=== PATIENT | female | born 1975 | race Caucasian/White ===

== ENCOUNTER → 2016-09-30 | Outpatient (CLI) | payer MEDICAID ==
[~2016-09-30] MED LIST: ARPZ10T PO; ATRV10T PO; BENZ-13 PO; CLON0.5T3 PO; DEXT30SU5 PO; DOCU100C37 PO; DULO30CA PO; FAMO10TA43 PO; FAMO20TA5 PO; FERR325C PO; GLYB5TAB6 PO; HYDR-1231 PO; HYDR25CA92 GT; IBUP-1780 PO; MELO-198 PO; MTF500T PO; OXYC-465 PO; PEG250PW PO; PRD20T PO; PREN-93 PO; PRM25T PO; RABE20TA PO; TRAZ150T42 PO
--- OUTSIDE RECORDS SUMMARY | 2016-09-30 12:23 | XMS REPORT | Continuity of Care Document ---
Author Author [facility] Organization [facility] Address Unknown Phone Unavailable Care Team Providers Care Human Factors Ergonomist Name Role Phone YARED JOHNSON MD PCP Insurance Providers Payer Name Policy Number Subscriber Name Relationship Sonya [facility] [id number] Julita Murry Self / Same As Patient Advance Directives Directive Response Recorded Date/Time Advance Directives No 02/06/15 4:12pm Health Care Power of Department Chairperson No 02/06/15 4:12pm Organ Donor No 02/06/15 4:12pm Resuscitation Status Full Code 02/06/15 4:12pm Problems Medical Problems Problem Onset Date Status Abdominal wall contusion Unknown Active Threatened miscarriage in early Unknown Active Contusion of knee Unknown Active Unknown Active Contusion of knee Unknown Active Abdominal wall contusion Unknown Active Medications Medication Dose Route Sig Days/Qty Instructions Order Date Discontinued Date Status Atorvastatin Calcium 10 Mg PO BEDTIME 07/31/12 11/15/14 Discontinued Rabeprazole Sodium 20 Mg PO DAILY 07/31/12 11/15/14 Discontinued Metformin HCl (Glucophage) 500 Mg PO DAILY Do not take until DR. tillman it after blood draw on 08/03/12 07/31/12 11/15/14 Discontinued Meloxicam (Mobic) 7.5 Mg PO DAILY 07/31/12 11/15/14 Discontinued Duloxetine HCl 90 Mg PO DAILY 07/31/12 11/15/14 Discontinued Polyethylene Glycol 8.5 Gm PO DAILY 07/31/12 11/15/14 Discontinued Trazodone Hcl 150 Mg PO BEDTIME 07/31/12 11/15/14 Discontinued Clonazepam (Klonopin) 0.5 Mg PO NEEDED 07/31/12 11/15/14 Discontinued Aripiprazole 5 Mg PO DAILY 07/31/12 11/15/14 Discontinued Famotidine (Pepcid) 1 Each PO TWICE A DAY 11/02/14 11/15/14 Discontinued Famotidine 10 Mg PO TWICE A DAY 11/15/14 Active Promethazine Hcl 25 Mg PO EVERY 6 HOURS For Vomiting 11/15/14 Active Vit/Fe Fumarate/Fa 1 Each PO DAILY 11/15/14 Active Hydrocodone Bit/Acetaminophen 1 Tab PO EVERY 4HRS PRN PAIN 10 Qty 11/1502/06/15 Discontinued Ferrous Sulfate 325 ( PO DAILY 02/06/15 Active Social History Social History Problem Response Recorded Date/Time Alcohol Use Denies Use 11/15/2014 3:00pm Recreational Drug Use No 11/15/2014 3:00pm Recent Foreign Travel No 02/06/2015 4:08pm Smoking Status Never a Smoker 02/06/2015 4:10pm Query Response Start Date Stop Date Smoking Status Never a Smoker Hospital Discharge Instructions No hospital discharge instructions. Plan of Care Discharge Date 02/06/15 5:00pm Disposition 30 STILL A PATIENT Instructions/Education Provided OB OUTPATIENT DISCHARGE Gestational Diabetes (GEN) Forms Provided [facility] Women Services/OP Prescriptions See Medications Section Additional Instructions/Education call with questions or concerns. follow up with as scheduled. increase water intake. continue to check BS, eat snacks when needed. call if decrease movement. Functional Status No functional status results. Allergies, Adverse Reactions, Alerts Allergen Type Severity Reaction Status Last Updated guaifenesin ([id number]) Allergy Unknown Active 07/31/12 Immunizations No immunization records. Vital Signs Acute Vital Signs Vital Response Date/Time Temperature (Fahrenheit) 98.5 degrees F (97.6 - 99.5) Temperature (Calculated Celsius) 36.13335 degrees C (36.4 - 37.5) Temperature Source Tympanic Pulse Rate (adult) 73 bpm (60 - 90) Respiratory Rate 20 bpm (12 - 24) O2 Sat by Pulse Oximetry 99 % (88 - 100) Blood Pressure 110/54 mm Hg Pain Pain Intensity 0 Height (Feet) 5 feet Height (Inches) 4.00 inches Height (Calculated Centimeters) 162.513578 cm Weight (Pounds) 200 pounds Weight (Calculated Grams) 81457.475 gm Weight (Calculated Kilograms) 90.290927 kilograms Calculated BMI 34.33 Results Laboratory Results Test Name Result Units Flags Reference Collection Date/Time Result Date/ Time Comments Glucometer 95 MG/DL 70-110 02/06/2015 4:07pm 02/06/2015 4:14pm Procedures No known history of procedures. Encounters Encounter Location Date/Time Discharged Inpatient [facility] 02/06/15 3:53pm Registered Clinic [facility] 01/23/15 8:37am
--- NOTE | 2016-09-30 16:50 | Diagnostic Imaging Report ---
CLINICAL INDICATION: Patient with abnormal uterine bleeding. EXAM: Transabdominal and transvaginal ultrasound of the pelvis. COMPARISON: None. FINDINGS: The endometrium is upper limits of normal for thickness measuring 1.6 cm, but does not appear to be significantly heterogeneous. Otherwise, the uterus has normal size, shape, and configuration. The uterus measures 9.8 cm x 5.2 cm x 5.6 cm. The left ovary was only seen on the transabdominal images. The left ovary measures 2.5 cm x 2.5 cm x 2.0 cm and shows no significant abnormality. The right ovary shows small follicular cysts, but otherwise unremarkable. The right ovary has normal spectral Doppler waveform. The right ovary measures 2.2 cm x 1.8 cm x 2.0 cm. There is an 8 mm cystic area in the region of the cervix, suspected to represent a nabothian cyst. There is no significant free fluid in the pelvis. IMPRESSION: 1: Upper limits of normal endometrial thickness at 1.6 cm which is nonspecific. 2: Otherwise, the remainder of the visualized portions of the pelvic ultrasound exam is unremarkable. Dictated by: Dictated on workstation # [id number]
--- NOTE | 2016-10-01 10:01 | Diagnostic Imaging Report ---
Bilateral screening mammogram. The current study was also evaluated with a Computer Aided Detection (CAD) system. INDICATION: Screening. No current complaints stated on the questionnaire. COMPARISON: No prior studies are available for comparison. FINDINGS: The breasts are composed of scattered fibroglandular densities slightly more dense in the outer aspect of each breast. There is an asymmetry in the central aspect of the left CC projection seen with lobulated 1-cm density and adjacent smaller asymmetry seen. There is also along the outer aspect of the right breast seen on the exaggerated CC projection a questionable asymmetry noted. No suspicious calcifications seen. IMPRESSION: Focal compression views and ultrasound evaluation for bilateral asymmetries recommended. ACR BI-RADS Category 0: Incomplete. (Needs additional imaging evaluation). Result letter will be mailed to the patient. Note: At least 10% of breast cancer is not imaged by mammography. Dictated by: Dictated on workstation # [id number]
== END ==
LOC: RAD 12:20
PROVIDERS: ATTEND Family Medicine
DX: Z12.31 Encounter for screening mammogram for malignant neoplasm of breast (principal); N64.89 Other specified disorders of breast; N93.8 Other specified abnormal uterine and vaginal bleeding
CPT/HCPCS: 76830; 76856; 77067

== ENCOUNTER → 2016-11-10 | Outpatient (CLI) | payer MEDICAID ==
--- NOTE | 2016-11-10 18:21 | Diagnostic Imaging Report ---
EXAMINATION: Bilateral breast ultrasound. The current study was also evaluated with a Computer Aided Detection (CAD) system. INDICATION: Bilateral breast asymmetries. FINDINGS: Unremarkable breast parenchyma with no focal lesion seen on either side. The four quadrants and retroareolar region of each breast were scanned. IMPRESSION: Negative study. The asymmetry in the right breast is likely related to summation artifact of parenchyma. The asymmetries in the central aspect of the left breast, seen on the CC projection, persisted on focal compression views and are indeterminate. These could also be summation artifact of parenchyma. These can be further evaluated with a breast MRI or if not obtained, then observed with a four month followup left breast mammogram. ACR BI-RADS Category 3: Probably benign findings. Result letter will be mailed to the patient. Note: At least 10% of breast cancer is not imaged by mammography. Dictated by: Dictated on workstation # [id number]
--- NOTE | 2016-11-10 18:24 | Diagnostic Imaging Report ---
EXAMINATION: Left breast digital diagnostic mammogram with CAD. The current study was also evaluated with a Computer Aided Detection (CAD) system. INDICATION: Bilateral asymmetries seen in the central aspect of the left CC projection and lateral aspect of the exaggerated lateral view on the right side. FINDINGS: Compression views demonstrate two 1 cm asymmetries that persists on the focal compression views with no definitive correlate on the lateral projection. The compression view on the right side in the lateral aspect demonstrates no underlying abnormality with suggestion of summation artifact of parenchyma. IMPRESSION: Persistent asymmetries, measuring 1 cm, in the central aspect of the left CC projection. The right lateral asymmetry is probably summation artifact of parenchyma. Ultrasound evaluation pending. ACR BI-RADS Category 0: Incomplete. (Needs additional imaging evaluation). Result letter will be mailed to the patient. Note: At least 10% of breast cancer is not imaged by mammography. Dictated by: Dictated on workstation # [id number]
== END ==
LOC: RAD 13:12
PROVIDERS: ATTEND Family Medicine
DX: R92.8 Other abnormal and inconclusive findings on diagnostic imaging of breast (principal)
CPT/HCPCS: 77066

== ENCOUNTER 2017-02-17 12:16 | Outpatient (CLI) | payer MEDICAID ==
[~2017-02-17] VITALS: Ht 160 cm; Wt 97.7 kg
[2017-02-17 12:29] VITALS: BP 128/78
[2017-02-17] MEDS ORDERED: CETI10TA20 PO (12:35)
[2017-02-17] MEDS ORDERED: TOPI50TA13 PO (12:35)
[2017-02-17] MEDS ORDERED: GLYB2.5T4 PO (12:35)
[2017-02-17] MEDS ORDERED: OMEP20TA7 PO (12:35)
[2017-02-17 13:04] LABS: BASOPHILS % (AUTO) 0 % (0-10); EOSINOPHILS # (AUTO) 0.2 10^3/uL (0.0-0.3); EOSINOPHILS % (AUTO) 2 % (0-10); LYMPHOCYTES # (AUTO) 1.8 X 10^3 (1.0-4.0); LYMPHOCYTES % (AUTO) 17 % (12-44); MEAN CORPUSCULAR HEMOGLOBIN 26 PG (25-34); MEAN CORPUSCULAR HGB CONC 31 G/DL (32-36); MEAN CORPUSCULAR VOLUME 83 FL (80-99); MEAN PLATELET VOLUME 11.6 FL (7.4-10.4); MONOCYTES # (AUTO) 0.5 X 10^3 (0.0-1.0); MONOCYTES % (AUTO) 4 % (0-12); NEUTROPHILS # (AUTO) 8.1 X 10^3 (1.8-7.8); NEUTROPHILS % (AUTO) 77 % (42-75); PLATELET COUNT 298 10^3/uL (130-400); RED BLOOD COUNT 4.62 10^6/uL (4.35-5.85); RED CELL DISTRIBUTION WIDTH 13.8 % (10.0-14.5); WHITE BLOOD COUNT 10.6 10^3/uL (4.3-11.0)
== END 2017-02-17 12:48 | disposition home or self-care (01) ==
LOC: PREOP 12:16
PROVIDERS: ATTEND Obstetrics & Gynecology
DX: Z01.812 Encounter for preprocedural laboratory examination (principal); Z11.2 Encounter for screening for other bacterial diseases; N84.0 Polyp of corpus uteri; N93.9 Abnormal uterine and vaginal bleeding, unspecified; Z68.38 Body mass index [BMI] 38.0-38.9, adult
CPT/HCPCS: 36415; 85025; 86850; 86900; 86901; 87081

== ENCOUNTER 2017-02-24 07:50 | Day surgery (SDC) | payer MEDICAID ==
[~2017-02-24] VITALS: Ht 160 cm; Wt 97.7 kg
[~2017-02-24 07:50] MED LIST changes: +CETI10TA20 PO; +GLYB2.5T4 PO; +OMEP20TA7 PO; +TOPI50TA13 PO
[2017-02-24 08:43] VITALS: BP 131/75
--- OUTSIDE RECORDS SUMMARY | 2017-02-24 08:51 | XMS REPORT | Continuity of Care Document ---
Author Author [facility] Address Unknown Phone Unavailable Allergies Active Description Code Type Severity Reaction Onset Reported/Identified Relationship to Patient Clinical Status Yes Robitussin Drug Allergy 06/29/2011 Yes guaifenesin [id number] Drug Allergy Unknown N/A 07/31/2012 Yes cephalexin [id number] Drug Allergy Unknown HIVES 02/17/2017 Medications Problems Date Dx Coded Attending Type Code Diagnosis Diagnosed By 06/29/2011 WINNIE PRITCHETT DO 110.5 Dermatophytosis Of The Body 06/29/2011 WINNIE PRITCHETT DO 522.5 Periapical Abscess Without Sinus 06/29/2011 WINNIE PRITCHETT DO 784.0 Headache 06/29/2011 SEVERIANO MANCERA PA-C 110.5 Dermatophytosis Of The Body 06/29/2011 SEVERIANO MANCERA PA-C 522.5 Periapical Abscess Without Sinus 06/29/2011 SEVERIANO MANCERA PA-C 784.0 Headache 12/09/2011 WINNIE PRITCHETT DO 272.4 OTHER AND UNSPECIFIED HYPERLIPIDEMIA 12/09/2011 WINNIE PRITCHETT DO 300.00 ANXIETY STATE UNSPECIFIED 12/09/2011 WINNIE PRITCHETT DO 530.81 ESOPHAGEAL REFLUX 12/09/2011 WINNIE PRITCHETT DO 783.1 Abnormal Weight Gain 12/09/2011 WINNIE PRITCHETT DO 796.2 Elevated Blood Pressure Reading Without Diagnosis Of Hypertension 12/09/2011 WINNIE PRITCHETT DO V58.69 LONG-TERM (CURRENT) USE OF OTHER MEDICATIONS 12/09/2011 WINNIE PRITCHETT DO V65.49 OTHER SPECIFIED COUNSELING 12/09/2011 SEVERIANO MANCERA PA-C 272.4 OTHER AND UNSPECIFIED HYPERLIPIDEMIA 12/09/2011 SEVERIANO MANCERA PA-C 300.00 ANXIETY STATE UNSPECIFIED 12/09/2011 SEVERIANO MANCERA PA-C 530.81 ESOPHAGEAL REFLUX 12/09/2011 SEVERIANO MANCERA PA-C 783.1 Abnormal Weight Gain 12/09/2011 SEVERIANO MANCERA PA-C 796.2 Elevated Blood Pressure Reading Without Diagnosis Of Hypertension 12/09/2011 SEVERIANO MANCERA PA-C V58.69 LONG-TERM (CURRENT) USE OF OTHER MEDICATIONS 12/09/2011 SEVERIANO MANCERA PA-C V65.49 OTHER SPECIFIED COUNSELING 01/17/2012 WINNIE PRITCHETT DO 112.1 Candidiasis Vaginal 01/17/2012 WINNIE PRITCHETT DO 616.10 Vaginitis And Vulvovaginitis Unspecified 01/17/2012 WINNIE PRITCHETT DO V72.31 Nut Sheller Exam, Routine 01/17/2012 SEVERIANO MANCERA PA-C 112.1 Candidiasis Vaginal 01/17/2012 SEVERIANO MANCERA PA-C 616.10 Vaginitis And Vulvovaginitis Unspecified 01/17/2012 SEVERIANO MANCERA PA-C V72.31 Nut Sheller Exam, Routine 05/02/2012 WINNIE PRITCHETT DO 628.9 INFERTILITY FEMALE OF UNSPECIFIED ORIGIN 05/02/2012 SEVERIANO MANCERA PA-C 628.9 INFERTILITY FEMALE OF UNSPECIFIED ORIGIN 06/02/2012 WINNIE PRITCHETT DO 466.0 Bronchitis, Acute 06/02/2012 WINNIE PRITCHETT DO 531.90 GASTRIC ULCER UNSPECIFIED ACUTE OR CHRONIC WITHOUT HEMORRHAGE OR PERFORATION WITHOUT OBSTRUCTION 06/02/2012 WINNIE PRITCHETT DO 564.00 CONSTIPATION 06/02/2012 WINNIE PRITCHETT DO 724.2 Lumbago 06/02/2012 WINNIE PRITCHETT DO 786.50 CHEST PAIN 06/02/2012 SEVERIANO MANCERA PA-C 466.0 Bronchitis, Acute 06/02/2012 SEVERIANO MANCERA PA-C 531.90 GASTRIC ULCER UNSPECIFIED ACUTE OR CHRONIC WITHOUT HEMORRHAGE OR PERFORATION WITHOUT OBSTRUCTION 06/02/2012 SEVERIANO MANCERA PA-C 564.00 CONSTIPATION 06/02/2012 SEVERIANO MANCERA PA-C 724.2 Lumbago 06/02/2012 SEVERIANO MANCERA PA-C 786.50 CHEST PAIN 06/30/2012 WINNIE PRITCHETT DO 790.95 ELEVATED C-REACTIVE PROTEIN (CRP) 06/30/2012 SEVERIANO MANCERA PA-C 790.95 ELEVATED C-REACTIVE PROTEIN (CRP) 07/26/2012 WINNIE PRITCHETT DO 250.00 DIABETES II CONTROLLED (UNCOMPLICATED) 07/31/2012 Ot 250.00 07/31/2012 Ot 300.00 07/31/2012 Ot 424.0 07/31/2012 Ot 786.59 07/31/2012 Ot V15.82 07/31/2012 Ot V58.69 10/03/2014 Ot 649.53 11/02/2014 Ot 649.53 11/02/2014 Ot 649.53 11/02/2014 JASEN DO, LEONARD K Ot 640.03 11/02/2014 JASEN DO, LEONARD K Ot 648.93 11/02/2014 JASEN POOLE, LEONARD K Ot 922.2 11/02/2014 JASEN DO, LEONARD K Ot E000.8 11/02/2014 JASEN POOLE, LEONARD K Ot E880.9 11/02/2014 Ot 649.53 11/02/2014 Ot 649.53 11/15/2014 MICHAELA MCFADDEN Ot 625.9 11/15/2014 MICHAELA MCFADDEN Ot 648.93 11/15/2014 MICHAELA MCFADDEN Ot 924.11 11/15/2014 MICHAELA MCFADDEN Ot E849.6 11/15/2014 MICHAELA MCFADDEN Ot E885.9 12/04/2014 YARED JOHNSON MD Ot V28.81 12/04/2014 YARED JOHNSON MD Ot V28.81 12/18/2014 YARED JOHNSON MD Ot V28.81 01/14/2015 YARED JOHNSON MD Ot V28.81 01/23/2015 YARED JOHNSON MD Ot V28.81 02/08/2015 YARED JOHNSON MD Ot V28.81 02/10/2015 YARED JOHNSON MD Ot 655.73 02/10/2015 YARED JOHNSON MD Ot 655.73 02/10/2015 YARED JOHNSON MD Ot 655.73 02/11/2015 YARED JOHNSON MD Ot 648.83 02/11/2015 YARED JOHNSON MD J Ot 655.73 02/19/2015 ELIZABETH ARANGO, YARED Baltazar Ot 648.83 02/24/2015 YARED JOHNSON MD Ot 648.83 03/24/2015 MARA MORTENSEN MD Ot 648.83 03/24/2015 FESTUS ARANGO, MARA Yo Ot 655.73 03/26/2015 YARED JOHNSON MD Ot 648.83 03/28/2015 YARED JOHNSON MD Ot V28.81 03/28/2015 YARED JOHNSON MD Ot V28.81 03/28/2015 YARED JOHNSON MD Ot 648.83 03/28/2015 YARED JOHNSON MD Ot 648.83 03/28/2015 FESTUS ARANGO, MARA Yo Ot 648.83 03/28/2015 FESTUS ARANGO, MARA Yo Ot V22.1 03/30/2015 WINNIE PRITCHETT DO Ot 655.73 04/03/2015 YARED JOHNSON MD Ot 648.81 04/03/2015 YARED JOHNSON MD Ot 656.51 04/03/2015 YARED JOHNSON MD Ot 659.61 04/03/2015 YARED JOHNSON MD Ot 659.71 04/03/2015 YARED JOHNSON MD Ot 663.31 04/03/2015 YARED JOHNSON MD Ot V27.0 04/03/2015 YARED JOHNSON MD Ot 648.83 04/11/2015 YARED JOHNSON MD Ot 648.83 04/11/2015 FESTUS ARANGO, MARA Yo Ot 648.83 05/14/2015 YARED JOHNSON MD Ot 648.83 05/23/2015 YARED JOHNSON MD Ot V28.81 05/23/2015 YARED JOHNSON MD Ot V28.81 05/23/2015 YARED JOHNSON MD Ot 648.83 05/23/2015 FESTUS ARANGO, MARA Yo Ot 648.83 08/03/2015 NURYS ARANGO, SEVERIANO Tiwari Ot J06.9 ACUTE UPPER RESPIRATORY INFECTION, UNSPE 08/03/2015 YARED JOHNSON MD Ot V28.81 08/03/2015 YARED JOHNSON MD, Ot V28.81 08/03/2015 YARED JOHNSON MD Ot 648.83 08/03/2015 MARA MORTENSEN MD Ot 648.83 11/07/2015 YARED JOHNSON MD Ot R51 11/20/2015 YARED JOHNSON MD, Ot R51 08/05/2016 YARED JOHNSON MD, Ot R51 HEADACHE 08/07/2016 KARLEY MCFADDENTCHEN L Ot E11.9 TYPE 2 DIABETES MELLITUS WITHOUT COMPLIC 08/07/2016 KARLEY MCFADDENTCHEN L Ot J06.9 ACUTE UPPER RESPIRATORY INFECTION, UNSPE 08/07/2016 GISELA TAPIA MICHAELA L Ot R05 COUGH 08/07/2016 ROSALIND MCFADDENEN L Ot R11.0 NAUSEA 08/10/2016 KARLEY MCFADDENTCHEN L Ot E11.9 TYPE 2 DIABETES MELLITUS WITHOUT COMPLIC 08/10/2016 KARLEY MCFADDENTCHEN L Ot J06.9 ACUTE UPPER RESPIRATORY INFECTION, UNSPE 08/10/2016 GISELA TAPIA MICHAELA L Ot R05 COUGH 08/10/2016 KARLEY MCFADDENTCHEN L Ot R11.0 NAUSEA 09/30/2016 YARED JOHNSON MD, Ot R51 HEADACHE 10/15/2016 AYRED JOHNSON MD Ot N64.89 OTHER SPECIFIED DISORDERS OF BREAST 10/15/2016 YARED JOHNSON MD Ot N93.8 OTHER SPECIFIED ABNORMAL UTERINE AND VAG 10/15/2016 YARED JOHNSON MD Ot Z12.31 ENCNTR SCREEN MAMMOGRAM FOR MALIGNANT NE 11/10/2016 YARED JOHNSON MD Ot R92.8 OTH ABN AND INCONCLUSIVE FINDINGS ON DX 11/11/2016 YARED JOHNSON MD Ot R92.8 OTH ABN AND INCONCLUSIVE FINDINGS ON DX 11/16/2016 YARED JOHNSON MD Ot R92.8 OTH ABN AND INCONCLUSIVE FINDINGS ON DX 11/22/2016 YARED JOHNSON MD Ot R92.8 OTH ABN AND INCONCLUSIVE FINDINGS ON DX 02/14/2017 YARED JOHNSON MD, Ot R51 HEADACHE 02/14/2017 YARED JOHNSON MD, Ot N64.89 OTHER SPECIFIED DISORDERS OF BREAST 02/14/2017 YARED JOHNSON MD, Ot N93.8 OTHER SPECIFIED ABNORMAL UTERINE AND VAG 02/14/2017 YARED JOHNSON MD, Ot Z12.31 ENCNTR SCREEN MAMMOGRAM FOR MALIGNANT NE 02/14/2017 YARED JOHNSON MD, Ot R92.8 OTH ABN AND INCONCLUSIVE FINDINGS ON DX 02/14/2017 YARED JOHNSON MD, Ot R51 HEADACHE 02/14/2017 YARED JOHNSON MD, Ot N64.89 OTHER SPECIFIED DISORDERS OF BREAST 02/14/2017 YARED JOHNSON MD, Ot N93.8 OTHER SPECIFIED ABNORMAL UTERINE AND VAG 02/14/2017 YARED JOHNSON MD, Ot Z12.31 ENCNTR SCREEN MAMMOGRAM FOR MALIGNANT NE 02/14/2017 YARED JOHNSON MD, Ot R92.8 OTH ABN AND INCONCLUSIVE FINDINGS ON DX 02/18/2017 DANNI SWIFT DO Ot N84.0 POLYP OF CORPUS UTERI 02/18/2017 DANNI SWIFT DO, Ot N93.9 ABNORMAL UTERINE AND VAGINAL BLEEDING, U 02/18/2017 DANNI SWIFT DO, Ot Z01.812 ENCOUNTER FOR PREPROCEDURAL LABORATORY E 02/18/2017 DANNI SWIFT DO, Ot Z11.2 ENCOUNTER FOR SCREENING FOR OTHER BACTER 02/18/2017 DANNI SWIFT DO, Ot Z68.38 BODY MASS INDEX (BMI) 38.0-38.9, ADULT Procedures Code Description Performed By Performed On Cardiolog Felipe Burks 06/30/2012 70257 ROUTINE VENIPUNCTURE 06/30/2012 [id number] CRP HS (CARDIO) 07/01/2012 75769 ECHO 2D 2011 Results Test Result Range Complete blood count (CBC) with automated white blood cell (WBC) differential - 02/17/17 12:45 Blood leukocytes automated count (number/volume) 10.6 10*3/ uL 4.3-11.0 Blood erythrocytes automated count (number/volume) 4.62 10*6 /uL 4.35-5.85 Venous blood hemoglobin measurement (mass/volume) 11.9 g/dL 11.5-16.0 Blood hematocrit (volume fraction) 38 % 35-52 Automated erythrocyte mean corpuscular volume 83 [foz_us] 80-99 Automated erythrocyte mean corpuscular hemoglobin (mass per erythrocyte) 26 pg 25-34 Automated erythrocyte mean corpuscular hemoglobin concentration measurement ( mass/volume) 31 g/dL 32-36 Automated erythrocyte distribution width ratio 13.8 % 10.0-14.5 Automated blood platelet count (count/volume) 298 10*3/uL 130-400 Automated blood platelet mean volume measurement 11.6 [foz_ us] 7.4-10.4 Automated blood neutrophils/100 leukocytes 77 % 42-75 Automated blood lymphocytes/100 leukocytes 17 % 12-44 Blood monocytes/100 leukocytes 4 % 0-12 Automated blood eosinophils/100 leukocytes 2 % 0-10 Automated blood basophils/100 leukocytes 0 % 0-10 Blood neutrophils automated count (number/volume) 8.1 10*3 1.8-7.8 Blood lymphocytes automated count (number/volume) 1.8 10*3 1.0-4.0 Blood monocytes automated count (number/volume) 0.5 10*3 0.0-1.0 Automated eosinophil count 0.2 10*3/uL 0.0-0.3 Automated blood basophil count (count/volume) 0.0 10*3/uL 0.0-0.1 Blood type T Indirect antibody screen panel - 02/17/17 12:45 ABO+Rh group AP NRG Blood group antibody screen NEGATIVE NRG Methicillin resistant Staphylococcus aureus (MRSA) screening culture - 12:45 Methicillin resistant Staphylococcus aureus (MRSA) screening culture NEG NRG Encounters ACCT No. Visit Date/Time Discharge Status Pt. Type Provider Facility Loc./Unit Complaint [id number] 07/26/2012 10:09:00 07/26/2012 23: 59:59 [place] [id number] 06/02/2012 14:16:00 06/02/2012 23: 59:59 CLS Outpatient SEVERIANO MANCERA PA-C
[2017-02-24] MEDS: LACTATED RINGERS 1,000 ML IV PRN ×2 (09:14→10:33)
[2017-02-24] MEDS ORDERED: LIDOCAINE 2% 20 ML (XYLOCAINE) VIAL ONE (09:39)
[2017-02-24] MEDS ORDERED: DEXAMETHASONE PF 10 MG/ML (DECADRON) VIAL ONE (09:39)
[2017-02-24] MEDS ORDERED: ONDANSETRON 4 MG/2 ML (SDV) Z0FRAN ONE (09:39)
[2017-02-24] MEDS ORDERED: fentaNYL INJECTION 100 MCG/2 ML AMP ONE (09:39)
[2017-02-24] MEDS ORDERED: proPOfol 200 MG/20 ML (DIPRIVAN) VIAL IV ONE (09:39)
[2017-02-24] MEDS ORDERED: LACTATED RINGERS 1,000 ML IV ONE ×2 (09:39→10:41)
[2017-02-24] MEDS ORDERED: MIDAZOLAM 2 MG/2 ML (VERSED) VIAL ONE (09:39)
[2017-02-24] MEDS ORDERED: SEVOFLURANE (ULTANE) 15 ML INHAL SOLN ONE ×3 (09:39→10:41)
[2017-02-24] MEDS ORDERED: BUPIVACAINE 0.25% 30 ML (SENSORCAINE) VIAL ONE (09:45)
--- NOTE | 2017-02-24 10:02 | Progress Note-Pre Operative ---
Pre-Operative Progress Note H&P Reviewed The H&P was reviewed, patient examined and no changes noted. Date Seen by Provider: Feb 24, 2017 Time Seen by Provider: 10:00 Date H&P Reviewed: Feb 24, 2017 Time H&P Reviewed: 09:55 Pre-Operative Diagnosis: AUB, Uterine polyp, BMI 38 DANNI SWIFT DO Feb 24, 2017 10:02 am
[2017-02-24] MEDS ORDERED: D5 LR IV SOLUTION 1,000 ML IV SCH (10:09)
[2017-02-24] MEDS ORDERED: APAP 300 MG/CODEINE 30 MG (TYLENOL #3) TAB PO PRN (10:15)
[2017-02-24] MEDS ORDERED: KETOROLAC 30 MG/ML VIAL IVP ONE (10:15)
[2017-02-24] MEDS ORDERED: ONDANSETRON 4 MG/2 ML (SDV) Z0FRAN IVP PRN ×2 (10:15→11:00)
[2017-02-24] MEDS ORDERED: IBUP-1773 PO (10:17)
[2017-02-24] MEDS ORDERED: ACET1TAB43 PO (10:17)
--- NOTE | 2017-02-24 10:17 | Discharge Inst-Women's Service ---
Discharge Inst-Women's Serv Consults/Follow Up Additional Follow Up: Yes Orders/Referrals Dr. Swift in 3 weeks Activity Activity: Activity as Tolerated Driving Instructions: You May Drive NO SMOKING: NO SMOKING Nothing Inside Vagina: No Douching, No [place], No Tampons Diet Discharge Diet: No Restrictions Symptoms to Report to : Bleeding Excessive, Pain Increased, Fever Over 101 Degrees F, Vaginal Bleeding Increase, Questions/Concerns Skin/Wound Care Bathing Instructions: Shower (x 1 week) DANNI SWIFT DO Feb 24, 2017 10:17 am
[2017-02-24] MEDS ORDERED: KETOROLAC 30 MG/ML VIAL ONE (10:53)
[2017-02-24] MEDS ORDERED: morphine INJ 10 MG/ML 1ML (SYR OR VIAL) ONE (10:54)
[2017-02-24] MEDS ORDERED: morphine INJ 10 MG/ML 1ML (SYR OR VIAL) IVP PRN (11:00)
[2017-02-24 11:50] VITALS: BP 134/90
[2017-02-24] MEDS ORDERED: IBUPROFEN 600 MG (MOTRIN) TAB PO SCH (12:00)
[2017-02-24 12:20] VITALS: BP 136/87
[2017-02-24 12:47] VITALS: BP 131/81
--- NOTE | 2017-02-27 23:44 | OPERATIVE REPORT ---
PROCEDURE PHYSICIAN: DANNI SWIFT DATE OF PROCEDURE: 02/24/2017 PREOPERATIVE DIAGNOSES: 1. Abnormal uterine bleeding. 2. BMI of 38.2. POSTOPERATIVE DIAGNOSIS: 1. Abnormal uterine bleeding. 2. BMI of 38.2. PROCEDURE: D\T\C with video hysteroscopy. SURGEON: Dr. Danni Swift. ANESTHESIA: General endotracheal. ESTIMATED BLOOD LOSS: Minimal. URINE OUTPUT: 50 clear at the end of the procedure. FLUIDS: 1100 mL of lactated ringer solution. FLUIDS DEFICIT AT THE END OF PROCEDURE: 180 mL of normal saline. SPECIMEN SENT: Endometrial curettings. FINDINGS: Normal endometrial cavity with normal appearing endometrial tissue; however, an enlarged uterus and a large cavity in length. Unable to perform NovaSure endometrial ablation due to cavity size. INDICATIONS FOR THE PROCEDURE: This 41-year-old female patient is consulted to me from the [facility] due to heavy abnormal periods. The patient underwent endometrial biopsy in the office which was found to be negative and was opting to proceed with hysterectomy; however, I discussed with the patient less aggressive options in the form of hysteroscopy with possible NovaSure ablation. However, I did discussed with the patient prior to this, there is a chance of all failure with these procedures as well as a chance that the uterine cavity would not allow me to perform the ablation. Given that this was a much more rapid recovery time frame for the patient, she was agreeable to proceed and try this first as a more conservative measure. Risk of the procedure were discussed with the patient in detail including risk of bleeding, infection, perforation, risk from the NovaSure ablation, risk from anesthesia, risk for postoperative thromboembolic events, need for blood transfusion, and even . After everything was discussed with the patient in detail, consent was obtained and the preoperative area and the patient was taken the operating room. OPERATIVE REPORT IN DETAIL: Once in the operating room, general anesthesia was found to be adequate. She was placed in the dorsal lithotomy position, prepped and draped in normal sterile fashion. She was first examined under anesthesia. The uterus is difficult to palpate due to patient's body habitus. I then placed a weighted speculum in the patient's vagina. A right angle retractor is used to visualize the cervix. It was grasped at the 12 position using a long Allis clamp. I then perform a paracervical block using 0.25% Marcaine at 3 and 9 o'clock positions. Care was taken to aspirate before injecting. I inject 5 mL at each injection site. I then gently sound the uterine cavity depth which was found to be nearly 13 cm. I then gently dilate the cervix using Hegar dilators large enough to allow placement of the hysteroscope. I then use the hysteroscope and using the Beetailer fluid management system, I use normal saline as my visual medium, and direct the hysteroscope into the intrauterine cavity which appears normal. Bilateral tubal ostia are appreciated. There was no intrauterine cavitary masses; however, the size of the uterine cavity is too large to ablate. At which point I remove the hysteroscope and perform a blind curette of the endometrial cavity gently and send this tissue as endometrial curettings. After which, there is no active bleeding noted from the patient's cervix. All other the instruments were removed from the patient's vagina. The patient tolerated the procedure well and was taken to the recovery area in stable condition after straight catheterization was performed. Lap and sponge counts were correct at the end of the procedure. Instrument counts correct as well. Job ID: [id number] Dictated Date: 02/24/2017 11:04:54 Retail Shift Leader Date: 02/27/2017 23:29:13 / rambo
== END 2017-02-24 12:47 | disposition home or self-care (01) ==
LOC: SDC 07:50
PROVIDERS: ATTEND Obstetrics & Gynecology
DX: N84.0 Polyp of corpus uteri (principal); N93.9 Abnormal uterine and vaginal bleeding, unspecified; E11.9 Type 2 diabetes mellitus without complications; E66.9 Obesity, unspecified; Z68.38 Body mass index [BMI] 38.0-38.9, adult; F17.210 Nicotine dependence, cigarettes, uncomplicated; Z79.899 Other long term (current) drug therapy
CPT/HCPCS: 82962; 84703; 88305

== ENCOUNTER → 2017-02-28 | Outpatient (CLI) | payer MEDICAID ==
[~2017-02-28] MED LIST changes: +ACET1TAB43 PO; +IBUP-1773 PO
--- NOTE | 2017-02-28 14:07 | Diagnostic Imaging Report ---
Left breast ultrasound Indication : nodule in the upper aspect of the left breast. Comparison 11/10/16. Findings: There is no underlying lesion in the central upper aspect of the right breast and is scanned with no definite abnormality. Impression: Negative study. The mammographic abnormality however persistent with circumscribed margins in favor of benign tissue such as intramammary lymph nodes. Again MRI would be helpful. If the not feasible, then a followup mammogram when the patient is due for her bilateral study in September 2017 is recommended. BI-RADS 3. Dictated by: Dictated on workstation # [id number]
--- NOTE | 2017-02-28 19:40 | Diagnostic Imaging Report ---
EXAMINATION: Diagnostic left breast mammogram. The current study was also evaluated with a Computer Aided Detection (CAD) system. COMPARISON: 11/10/2016. INDICATION: Followup asymmetry in the central aspect of the left CC projection. FINDINGS: There is an unchanged lobulated focal asymmetry seen along the central slightly superior aspect of the left breast, better seen on the CC projection. Tomographic views demonstrate a correlating lesion along the 12 o'clock zone, and there is suggestion of central lucency in favor of an intramammary lymph node. No suspicious mass or calcification is seen. IMPRESSION: Stable persistent focal asymmetry at 12 o'clock zone, possibly an intramammary lymph node. Ultrasound correlation is pending. ACR BI-RADS Category 0: Incomplete. (Needs additional imaging evaluation). Result letter will be mailed to the patient. Note: At least 10% of breast cancer is not imaged by mammography. Dictated by: Dictated on workstation # [id number]
== END ==
LOC: RAD 13:02
PROVIDERS: ATTEND Family Medicine
DX: N63 Unspecified lump in breast (principal)
CPT/HCPCS: 76642

== ENCOUNTER → 2019-04-24 | Outpatient (CLI) | payer MEDICAID ==
[~2019-04-24] MED LIST changes: -BENZ-13 PO; +BENZ100C18 PO
--- NOTE | 2019-04-24 18:56 | Diagnostic Imaging Report ---
INDICATION: Routine screening. COMPARISON: Comparison is made with prior mammograms from 02/28/2017 and 09/30/2016. TECHNIQUE: 2-D and 3-D bilateral screening mammography was performed. The current study was also evaluated with a Computer Aided Detection (CAD) system. 3-D tomosynthesis was also performed and reviewed. FINDINGS: Both breasts remain heterogeneously dense, limiting the sensitivity of mammography. Circumscribed nodular density in the upper central left breast appears stable and most consistent with intraparenchymal lymph node. No new mass or malignant-appearing microcalcifications are seen. Axillae are unremarkable. IMPRESSION: No mammographic features suspicious for malignancy are identified. ACR BI-RADS Category 2: Benign findings. Result letter will be mailed to the patient. Note: At least 10% of breast cancer is not imaged by mammography. Dictated by: Dictated on workstation # [id number]
== END ==
LOC: RAD 07:52
PROVIDERS: ATTEND Family Medicine
DX: Z12.31 Encounter for screening mammogram for malignant neoplasm of breast (principal)
CPT/HCPCS: 77067

== ENCOUNTER → 2019-05-30 | Outpatient (CLI) | payer MEDICAID ==
[~2019-05-30] VITALS: Ht 160 cm; Wt 90.8 kg
[~2019-05-30] MED LIST changes: +CATHETER FLUSH 10 ML SYR IV PRN; +REGADENOSON 0.4 MG/5 ML SYR (LEXISCAN) IV ONE
--- NOTE | 2019-05-30 17:54 | STRESS TEST ---
DATE OF SERVICE: 05/30/2019 LEXISCAN MYOVIEW STRESS TEST REPORT REFERRING PHYSICIAN: Avery Lock MD Baseline heart rate is 70. Baseline blood pressure 131/89. Baseline EKG is sinus rhythm with no ischemic changes. In summary, the patient was injected with 9.8 mCi of technetium-99 Myoview and the resting images were obtained. Then, the patient received 0.4 mg of Lexiscan followed by 28.4 mCi of technetium-99 Myoview. Throughout the test, there were no EKG changes. The resting and stress images were reviewed and compared in the short axis, horizontal long axis, and vertical long axis views. Review of the images showed breast attenuation with typical female pattern. No significant ischemia or infarction were noted on SPECT images. SSS is 2, SDS 2, TID value 0.94. On the gated images, the left ventricle appeared to be normal size with normal contractility. Calculated ejection fraction 53%. IN CONCLUSION: 1. The patient tolerated Lexiscan well. 2. Breast attenuation with typical female pattern with no significant ischemia or infarction on SPECT images. 3. Normal left ventricular size with normal contractility. Calculated ejection fraction 53%. Job ID: [id number] DocumentID: [id number] Dictated Date: 05/30/2019 17:39:49 Crude Oil Driver Date: 05/30/2019 17:53:20 Dictated By: WALI PLAZA MD
== END ==
LOC: CARD 08:47
PROVIDERS: ATTEND Internal Medicine Cardiovascular Disease
DX: E11.9 Type 2 diabetes mellitus without complications (principal); I34.0 Nonrheumatic mitral (valve) insufficiency; Z72.0 Tobacco use; Z78.9 Other specified health status
CPT/HCPCS: 78452; 93017; 93306

== ENCOUNTER → 2019-08-31 | Outpatient (CLI) | payer MEDICAID ==
[~2019-08-31] MED LIST changes: -CATHETER FLUSH 10 ML SYR IV PRN; -REGADENOSON 0.4 MG/5 ML SYR (LEXISCAN) IV ONE
--- NOTE | 2019-08-31 16:49 | Diagnostic Imaging Report ---
EXAMINATION: Lumbar spine radiographs, 3 views. COMPARISON: None. HISTORY: 44-year-old female, low back pain. Fall. FINDINGS: There are bilateral L5 pars interarticularis defects. There is grade 1 anterolisthesis of L5 on S1, measuring 4 mm. There is moderate disc height loss at L5-S1. Additional involvement of the lumbar spine is unremarkable. Facet joints are unremarkable. The sacroiliac joints are unremarkable. IMPRESSION: 1. Bilateral L5 pars interarticularis defects with grade 1 anterolisthesis of L5 on S1, measuring 4 mm. 2. Moderate disc height loss at L5-S1. Dictated by: Dictated on workstation # [id number]
== END ==
LOC: RAD 16:11
PROVIDERS: ATTEND Family Medicine
DX: M54.16 Radiculopathy, lumbar region (principal); R29.890 Loss of height
CPT/HCPCS: 72100

== ENCOUNTER → 2019-09-13 | Outpatient (CLI) | payer MEDICAID ==
--- NOTE | 2019-09-13 09:31 | Diagnostic Imaging Report ---
PROCEDURE: MRI lumbar spine. TECHNIQUE: Multiplanar, multisequence MRI of the lumbar spine was performed without contrast. INDICATION: Low back pain, increasing in severity. No prior studies are available for comparison. FINDINGS: Curvature of the lumbar spine is normal. There is grade 1 spondylolisthesis of L5 on S1. There appeared to be pars defects at the L5-S1 level. Vertebral body heights are maintained. The marrow signal intensity is unremarkable. No geographic marrow lesion or acute compression fracture is seen. There is significant degenerative disc disease at the L5-S1 level, with disc space narrowing and desiccation. The conus is unremarkable at the T12-L1 level. T12-L1: Central canal and neural foramina are widely patent. L1-T2: Central canal and neural foramina are widely patent. L2-L3: Central canal and neural foramina are widely patent. L3-L4: Central canal and neural foramina are widely patent. L4-L5: Central canal and right neural foramen is widely patent. There is very mild left neural foraminal narrowing due to broad based left posterolateral disc bulging. L5-S1: Broad-based disc bulging is noted. This produces significant narrowing of the lateral recesses bilaterally. There is also severe bilateral neural foraminal stenosis. No significant central canal stenosis is seen. Paraspinous tissues are unremarkable. IMPRESSION: Lower lumbar degenerative disc disease. This is most significant at L5-S1 where there is grade 1 spondylolisthesis and bilateral spondylolysis. Significant bilateral lateral recess stenosis and bilateral neural foraminal stenosis is noted. There is also mild left neural foraminal narrowing at L4-L5. Dictated by: Dictated on workstation # [id number]
== END ==
LOC: RAD 07:17
PROVIDERS: ATTEND Family Medicine
DX: M51.37 Other intervertebral disc degeneration, lumbosacral region (principal); M47.817 Spondylosis without myelopathy or radiculopathy, lumbosacral region; M43.17 Spondylolisthesis, lumbosacral region; M48.07 Spinal stenosis, lumbosacral region; R29.890 Loss of height
CPT/HCPCS: 72148

== ENCOUNTER → 2020-03-07 | Outpatient (CLI) | payer MEDICAID ==
[~2020-03-07] MED LIST changes: -CETI10TA20 PO; +CETI10TA21 PO
--- NOTE | 2020-03-07 11:52 | Diagnostic Imaging Report ---
PROCEDURE: US Non-ob pelvis comp/trans. TECHNIQUE: Multiple realtime grayscale images were obtained of the pelvis in various projections endovaginally. Transabdominal imaging was also performed. INDICATION: Left pelvic pain. The uterus is anteverted measuring 9.4 x 5.5 x 5.6 cm. Endometrium is approximately 11 mm in thickness. There is uterine myometrial heterogeneity but no discrete myometrial mass is detected. Right ovary measures 2.5 x 1.7 x 1.8 cm and the left ovary measures 2.6 x 1.7 x 2.7 cm. Ovaries contain small follicles. No adnexal mass or free fluid is detected. IMPRESSION: Essentially unremarkable pelvic ultrasound. Dictated by: Dictated on workstation # [id number]
== END ==
LOC: RAD 09:30
PROVIDERS: ATTEND Family Medicine
DX: R10.2 Pelvic and perineal pain (principal); N92.0 Excessive and frequent menstruation with regular cycle
CPT/HCPCS: 76830; 76856

== ENCOUNTER 2020-04-09 10:11 | Outpatient (CLI) | payer MEDICAID ==
[~2020-04-09] VITALS: Ht 160 cm; Wt 106.3 kg
[~2020-04-09 10:11] MED LIST changes: +ALPR0.5T PO; +AMLO5TAB9 PO; +DIVA500T PO; +OXYB5TAB13 PO; +PANT40SU PO
[2020-04-14] MEDS ORDERED: HYDR-34 PO (09:38)
[2020-04-14] MEDS ORDERED: DCS100C PO (09:38)
[2020-04-14] MEDS ORDERED: IBUP-844 PO (09:38)
[2020-04-14] MEDS ORDERED: SIME80TA16 PO (09:38)
== END 2020-04-09 10:17 | disposition home or self-care (01) ==
LOC: PREOP 10:11
PROVIDERS: ATTEND Obstetrics & Gynecology
DX: Z01.818 Encounter for other preprocedural examination (principal)

== ENCOUNTER 2020-06-04 05:33 | Outpatient (RCR) | payer MEDICAID ==
[~2020-06-04] VITALS: Ht 165.1 cm; Wt 108.4 kg
[~2020-06-04 05:33] MED LIST changes: -CETI10TA21 PO; +CETI10TA49 PO; +DCS100C PO; +HYDR-34 PO; +IBUP-844 PO; -OXYC-465 PO; +OXYC-556 PO; +SIME80TA16 PO
[2020-06-06] MEDS ORDERED: PANT40TA2 PO (12:35)
== END 2020-06-04 10:40 | disposition home or self-care (01) ==
LOC: PREOP 05:33
PROVIDERS: ATTEND Surgery
DX: Z01.812 Encounter for preprocedural laboratory examination (principal); Z20.828 Contact with and (suspected) exposure to other viral communicable diseases
CPT/HCPCS: 87635

== ENCOUNTER 2020-06-06 12:02 | Day surgery (SDC) | payer MEDICAID ==
[2020-06-06] VITALS (10 sets, daily range): BP systolic 116–154; BP diastolic 57–80
[~2020-06-06] VITALS: Ht 165.1 cm; Wt 108.4 kg
[~2020-06-06 12:02] MED LIST changes: +AMLO-250 PO; -AMLO5TAB9 PO
[2020-06-06] MEDS ORDERED: NS IV 500 ML 500 ML ONE (12:08)
[2020-06-06] MEDS ORDERED: NS IV 500 ML 500 ML IV PRN (12:10)
[2020-06-06] MEDS ORDERED: HURRICAINE EXT TUBE (BENZOCAINE) XX PRN (12:15)
[2020-06-06] MEDS ORDERED: fentaNYL INJECTION 100 MCG/2 ML AMP IVP ONE (12:15)
[2020-06-06] MEDS ORDERED: MIDAZOLAM 5 MG/5 ML (VERSED) VIAL IV ONE (12:15)
[2020-06-06] MEDS ORDERED: LIDOCAINE JELLY 2% 6 ML SYRINGE MM PRN (12:15)
--- NOTE | 2020-06-06 12:33 | Progress Note-Pre Operative ---
Pre-Operative Progress Note H&P Reviewed The H&P was reviewed, patient examined and no changes noted. Date Seen by Provider: Jun 06, 2020 Time Seen by Provider: 12:00 Date H&P Reviewed: Jun 06, 2020 Time H&P Reviewed: 12:00 Pre-Operative Diagnosis: JAKI THAO MD Jun 06, 2020 12:33
--- NOTE | 2020-06-06 12:33 | Conscious Sedation/ASA ---
Conscious Sedation Pre-Proced Time 12:00 ASA Score 2 For ASA 3 and 4: Consider anesthesia and medical clearance. Also, for patients with a history of failed moderate sedation consider anesthesia. Airway Lungs Heart ASA score ASA 1: a normal healthy patient ASA 2: a patient with a mild systemic disease (mid diabetes, controlled hypertension, obesity ASA 3: a patient with a severe systemic disease that limits activity (angina, COPD, prior Myocardial infarction) ASA 4: a patient with an incapacitating disease that is a constant threat to life (CHF, renal failure) ASA 5: a moribund patient not expected to survive 24 hrs. (ruptured aneurysm) ASA 6: a declared brain- patient whose organs are being harvested. For emergent operations, add the letter E after the classification Mallampati Classification Grade 2 Sedation Plan Analgesia, Amnesia, Plan communicated to team members, Discussed options with patient/fam, Discussed risks with patient/fam The patient is an appropriate candidate to undergo the planned procedure, sedation, and anesthesia. The patient immediately re-assessed prior to indication. JAKI WHITLOCK MD Jun 06, 2020 12:33
[2020-06-06] MEDS ORDERED: PANT40TA2 PO (12:35)
--- NOTE | 2020-06-06 12:35 | Discharge Inst-Surgical ---
D/C Lap Instructions-CHINYERE New, Converted, or Re-Newed RX: RX on Chart Follow Up Appt in 2 weeks Activity as tolerated High Fiber Diet 25g or more per day Avoid Alcohol, Caffeine, Spicy [place] and Acid foods. Drink 64 fluid oz or more of fluids per day. Symptoms to Report: Fever over 101 degree F, Nausea/Vomiting If any problems/questions: Contact your physician or go to Emergency Room JAKI WHITLOCK MD Jun 06, 2020 12:35
[2020-06-06] MEDS ORDERED: ONDANSETRON 4 MG/2 ML (SDV) Z0FRAN IVP PRN (12:45)
[2020-06-06] MEDS ORDERED: HYDROcodone/APAP 5 MG/325 MG (LORTAB) TAB PO PRN (12:45)
[2020-06-06] MEDS ORDERED: morphine INJ 10 MG/ML 1ML (SYR OR VIAL) IVP PRN ×2 (12:45)
[2020-06-06] MEDS ORDERED: ACETAMINOPHEN 325 MG TABLET PO PRN (12:45)
[2020-06-06] MEDS ORDERED: HURRICAINE EXT TUBE (BENZOCAINE) ONE (13:19)
[2020-06-06] MEDS ORDERED: fentaNYL INJECTION 100 MCG/2 ML AMP ONE ×2 (13:19→13:21)
[2020-06-06] MEDS ORDERED: MIDAZOLAM 5 MG/5 ML (VERSED) VIAL ONE ×2 (13:19→13:21)
[2020-06-06] MEDS ORDERED: LIDOCAINE JELLY 2% 6 ML SYRINGE ONE (13:20)
--- NOTE | 2020-06-06 14:21 | Progress Note-Post Operative ---
Post-Operative Progess Note Surgeon (s)/Bus Analyst (s) Surgeon JAKI WHITLOCK MD Bus Analyst: none Pre-Operative Diagnosis GERD Post-Operative Diagnosis reflux esophagitis(stage 2), small-moderate HH(2.5cm), moderate gastritis. Procedure & Operative Findings Date of Procedure 06/06/20 Procedure Performed/Findings EGD with bx. Anesthesia Type cs Estimated Blood Loss Estimated blood loss (mL): minimal Specimens/Packing Specimens Removed ge jxn, antrum JAKI WHITLOCK MD Jun 06, 2020 14:21
--- NOTE | 2020-06-06 21:48 | OPERATIVE REPORT ---
DATE OF SERVICE: 06/06/2020 ATTENDING PRIMARY CARE PHYSICIAN: Dr. Avery Lock. PREOPERATIVE DIAGNOSIS: Gastroesophageal reflux disease. POSTOPERATIVE DIAGNOSES: Reflux esophagitis, stage II. Small to moderate size hiatal hernia, approximately 2.5 cm in size, moderate gastritis. PROCEDURE: EGD with biopsy. SURGEON: Jaki Whitlock MD ANESTHESIA: General endotracheal. ESTIMATED BLOOD LOSS: Minimal. FINDINGS: Reflux esophagitis, stage II. Small to moderate size hiatal hernia, approximately 2.5 cm in size, moderate gastritis. DISPOSITION: The patient tolerated the procedure well. INDICATION: The patient is a 44-year-old female who has had issues with epigastric burning sensation as well as crampy pain. She states that she has been treated with medication; however, has been noncompliant in the past. She also reports that she has taken them for a short period of time and her symptoms had reoccur and she would discontinue the medication. She does have risk factors including caffeinated beverages as well as cigarette smoking. DESCRIPTION OF PROCEDURE: The patient was brought to the endoscopy suite, laid in the left lateral decubitus position. After adequate IV pain and sedated medications and conscious sedation anesthesia, the mouthpiece was applied. The endoscope was placed in the mouth, visualizing the pharynx and hypopharyngeal region. Vocal cords, epiglottis and vallecula identified and appeared to be normal. The endoscope was then gently intubated at esophageal opening and esophagus insufflated. The endoscope was then advanced through the first, second and third portion of esophagus at the level of the GE junction, reflux esophagitis stage II identified. There were no ulcers or strictures identified in this region. A biopsy was taken with forceps with visualization of good hemostasis. The endoscope was then advanced into the stomach and endoscope retroflexed, visualizing a small to moderate size hiatal hernia, approximately 2.5 cm in size. There was a moderate severity gastritis with some superficial erosions of the antrum as well. This was biopsied with forceps to rule out H. pylori with visualization of good hemostasis. The endoscope was then advanced to the pylorus and the first and second portion of the duodenum, which appeared normal with no distal obstructions or ulcerations. The endoscope was then slowly withdrawn while taking a second look and suctioning of residual air with no additional findings. The patient tolerated the procedure well. She will need to follow the necessary lifestyle and diet accommodation, which would include smoking cessation as well as avoidance of caffeinated beverages, spicy, greasy and acidic foods. She also needs to avoid taking small and more frequent meals, avoid eating at night as well as head elevation while lying supine. Any modality of regularly scheduled diet and exercise and weight loss and maintenance would also be beneficial. We also do recommend a PPI acid lpta and she states that she was given a prescription; however, has not started yet and we will recommend that she does take that on a regular everyday basis. Job ID: [id number] DocumentID: [id number] Dictated Date: 06/06/2020 14:18:22 Tool Die Maker Date: 06/06/2020 21:46:53 Dictated By: JAKI WHITLOCK MD
== END 2020-06-06 15:22 | disposition home or self-care (01) ==
LOC: ENDO 12:02
PROVIDERS: ATTEND Surgery
DX: K21.00 Gastro-esophageal reflux disease with esophagitis, without bleeding (principal); K29.50 Unspecified chronic gastritis without bleeding; K44.9 Diaphragmatic hernia without obstruction or gangrene; I10 Essential (primary) hypertension; F17.210 Nicotine dependence, cigarettes, uncomplicated; Z79.899 Other long term (current) drug therapy; Z88.1 Allergy status to other antibiotic agents; Z88.8 Allergy status to other drugs, medicaments and biological substances; Z90.710 Acquired absence of both cervix and uterus; Z83.3 Family history of diabetes mellitus
CPT/HCPCS: 88305

== ENCOUNTER → 2020-06-12 | Outpatient (CLI) | payer MEDICAID ==
[~2020-06-12] MED LIST changes: +PANT40TA2 PO
--- NOTE | 2020-06-12 12:39 | Diagnostic Imaging Report ---
Digital mammogram. Bilateral screening This study was compared to prior exams of 04/24/2019, 02/28/2017 and 09/30/2016. At the time of this screening examination the patient did relate to that she has had right nipple discharge approximately 1 week ago. Fibroglandular tissue both breasts is heterogeneously dense. This does limit the sensitivity of this exam. On the MLO view of the right breast there is a suggestion of architectural distortion in the retroareolar region approximately 4 cm from the nipple. This finding is difficult to appreciate on the craniocaudad view may be secondary to superimposition. Even so, I would recommend that a compression view of this area be obtained in the CC and MLO projections as well as a true lateral view for further evaluation. Ultrasound should also be performed. The left breast is unchanged. Impression: Additional mammographic views and ultrasound of the right breast will be recommended for further study. Ultrasound should also be performed. ACR BI-RADS Category 0: Incomplete. (Needs additional imaging evaluation). Result letter will be mailed to the patient. Note: At least 10% of breast cancer is not imaged by mammography. Dictated by: Dictated on workstation # [id number]
== END ==
LOC: RAD 08:00
PROVIDERS: ATTEND Obstetrics & Gynecology
DX: Z12.31 Encounter for screening mammogram for malignant neoplasm of breast (principal)
CPT/HCPCS: 77063; 77067

== ENCOUNTER → 2020-06-25 | Outpatient (CLI) | payer MEDICAID ==
--- NOTE | 2020-06-25 12:53 | Diagnostic Imaging Report ---
INDICATION: Architectural distortion right breast. Patient presents for additional views. Correlation is made with the recent screening mammogram from 06/12/2020. Unilateral right 2-D and 3-D diagnostic mammography was performed. This included spot compression CC and ML views as well as additional 90 degree lateral views. Additional views fail to demonstrate a discrete mass or area of architectural distortion. The area of questionable distortion on screening study most likely represented superimposed tissue. IMPRESSION: BI-RADS 0 Additional views fail to demonstrate a discrete mass or architectural distortion. Even so directed sonographic interrogation of the right breast approximately 4 cm from the nipple medial and lateral is recommended and will be performed today. ACR BI-RADS Category 0: Incomplete. (Needs additional imaging evaluation). Result letter will be mailed to the patient. Note: At least 10% of breast cancer is not imaged by mammography. Dictated by: Dictated on workstation # [id number]
--- NOTE | 2020-06-25 13:54 | Diagnostic Imaging Report ---
INDICATION: Right breast density, questionable architectural distortion. COMPARISON: Correlation is made with the diagnostic mammogram from earlier this same day and a screening mammogram from 06/12/2020. FINDINGS: Sonographic interrogation from the 8 to 10 o'clock location as well as the 2 to 4 o'clock location was performed. No sonographic abnormality is seen. No solid or cystic mass is detected. IMPRESSION: No sonographic abnormality is detected. The patient may return to routine annual screening mammography. ACR BI-RADS Category 1: Negative. Result letter will be mailed to the patient. Note: At least 10% of breast cancer is not imaged by mammography. Dictated by: Dictated on workstation # [id number]
== END ==
LOC: RAD 12:45
PROVIDERS: ATTEND Obstetrics & Gynecology
DX: R92.8 Other abnormal and inconclusive findings on diagnostic imaging of breast (principal)
CPT/HCPCS: 76642; 77065; G0279

== ENCOUNTER → 2021-07-03 | Outpatient (CLI) | payer MEDICAID ==
[~2021-07-03] MED LIST changes: -DCS100C PO; +DOCU-239 PO; +GLBR2.5T PO; +GLBR5T PO; -GLYB2.5T4 PO; -GLYB5TAB6 PO
--- NOTE | 2021-07-03 13:44 | Diagnostic Imaging Report ---
INDICATION: Routine screening. Comparison is made with prior mammogram 06/12/2020 and 04/24/2019. 2-D and 3-D bilateral screening mammography was performed with CAD. Both breasts are heterogeneously dense, limiting the sensitivity of mammography. A nodular density in the upper left breast is stable. No new mass or malignant-appearing microcalcifications are seen. Axillae are unremarkable. IMPRESSION: No mammographic features suspicious for malignancy are identified. BI-RADS Category 2 ACR BI-RADS Category 2: Benign findings. Result letter will be mailed to the patient. Note: At least 10% of breast cancer is not imaged by mammography. Dictated by: Dictated on workstation # [id number]
== END ==
LOC: RAD 08:22
PROVIDERS: ATTEND Obstetrics & Gynecology
DX: Z12.31 Encounter for screening mammogram for malignant neoplasm of breast (principal)
CPT/HCPCS: 77063; 77067

== ENCOUNTER → 2021-07-27 | Outpatient (CLI) | payer MEDICAID ==
[~2021-07-27] MED LIST changes: +CATHETER FLUSH 10 ML SYR IV PRN
--- NOTE | 2021-07-27 12:19 | Diagnostic Imaging Report ---
INDICATION: Right upper quadrant pain. TECHNIQUE: The patient was administered 5.4 mCi of technetium 99m Choletec intravenously and imaging over the abdomen was performed. After 60 minutes, the patient ingested Ensure and a gallbladder ejection fraction was calculated. FINDINGS: There is homogeneous uptake of activity by the liver with prompt excretion of activity into the gallbladder and common duct. There is normal passage of activity into the small bowel. There is also activity throughout the stomach, consistent with gastric bile reflux. The gallbladder ejection fraction is 92%. IMPRESSION: 1. Patent cystic duct and common bile duct. 2. The gallbladder ejection fraction of 92% could represent a hyperfunctioning gallbladder. 3. Findings consistent with gastric bile reflux. Dictated by: Dictated on workstation # [id number]
== END ==
LOC: CARD 10:00
PROVIDERS: ATTEND Surgery
DX: K21.9 Gastro-esophageal reflux disease without esophagitis (principal)
CPT/HCPCS: 78227; A9537

== ENCOUNTER 2021-08-04 05:50 | Outpatient (CLI) | payer MEDICAID ==
[~2021-08-04] VITALS: Ht 165.1 cm; Wt 95.7 kg
[~2021-08-04 05:50] MED LIST changes: -CATHETER FLUSH 10 ML SYR IV PRN
[2021-08-04] MEDS ORDERED: HYDR25TA4 PO (09:59)
[2021-08-04] MEDS ORDERED: PANT40TA52 PO (09:59)
[2021-08-04] MEDS ORDERED: SUCR1TAB PO (09:59)
[2021-08-04] MEDS ORDERED: OMEP20TA7 PO (09:59)
[2021-08-04] MEDS ORDERED: FAMO40TA72 PO (09:59)
[2021-08-04] MEDS ORDERED: OXYB5TAB13 PO (09:59)
[2021-08-04] MEDS ORDERED: ATOR10TA66 PO (09:59)
== END 2021-08-04 10:04 | disposition home or self-care (01) ==
LOC: PREOP 05:50
PROVIDERS: ATTEND Surgery
DX: Z01.818 Encounter for other preprocedural examination (principal)

== ENCOUNTER 2021-08-06 09:46 | Day surgery (SDC) | payer MEDICAID ==
[~2021-08-06] VITALS: Ht 165.1 cm; Wt 95.7 kg
[2021-08-06] VITALS (11 sets, daily range): BP systolic 106–134; BP diastolic 56–75
[~2021-08-06 09:46] MED LIST changes: +ATOR10TA66 PO; +FAMO40TA72 PO; +HYDR25TA4 PO; +PANT40TA52 PO; +SUCR1TAB PO
[2021-08-06] MEDS ORDERED: CLINDAMYCIN 900 MG/50 ML IVPB 50 ML IV ONE (10:00)
[2021-08-06] MEDS: LACTATED RINGERS 1,000 ML IV PRN ×2 (10:22→12:47)
--- NOTE | 2021-08-06 10:23 | Progress Note-Pre Operative ---
Pre-Operative Progress Note H&P Reviewed The H&P was reviewed, patient examined and no changes noted. Date Seen by Provider: Aug 06, 2021 Time Seen by Provider: 10:20 Date H&P Reviewed: Aug 06, 2021 Time H&P Reviewed: 10:15 Pre-Operative Diagnosis: Biliary Colic, Biliary Dyskinesia MENA MCNULTY APRN Aug 06, 2021 10:23
[2021-08-06] MEDS ORDERED: OXYC1TAB16 PO (10:24)
--- NOTE | 2021-08-06 10:25 | Discharge Inst-Surgical ---
D/C Lap Instructions-KIDO Reconcile Patient Problems Problems Reviewed?: Yes New, Converted, or Re-Newed RX: RX on Chart Follow Up Appt in 2 weeks Activity as tolerated No driving for 24 hours No driving while on pain medications Incentive Spirometry use every 2 hours while awake Regular Diet Symptoms to Report: Fever over 101 degree F, Nausea/Vomiting Infection Signs and Symptoms to report: Increased redness, Foul odor of wound, Increased drainage Bathing instructions: May shower Operative Area Clean/Dry; Keep incision clean/dry If any problems/questions: Contact your physician or go to Emergency Room MENA MCNULTY APRN Aug 06, 2021 10:25
[2021-08-06] MEDS ORDERED: oxyCODONE/APAP 5/325MG (PERCOCET 5) TABLET PO PRN (10:30)
[2021-08-06] MEDS ORDERED: ONDANSETRON 4 MG/2 ML (SDV) Z0FRAN IVP PRN (10:30)
[2021-08-06] MEDS ORDERED: ACETAMINOPHEN 325 MG TABLET PO PRN (10:30)
[2021-08-06] MEDS ORDERED: morphine INJ 10 MG/ML 1ML (SYR OR VIAL) IVP PRN (10:30)
[2021-08-06] MEDS ORDERED: LIDOCAINE/EPI 1%-1:200,000 (XYLOCAINE) 30 ML VIAL ONE (11:28)
[2021-08-06] MEDS ORDERED: fentaNYL INJ 100 MCG/2 ML AMP ONE (11:56)
[2021-08-06] MEDS ORDERED: MIDAZOLAM 2 MG/2 ML (VERSED) VIAL ONE (11:56)
[2021-08-06] MEDS ORDERED: NEOSTIGMINE 3 MG/3 ML VIAL ONE (12:43)
[2021-08-06] MEDS ORDERED: SEVOFLURANE (ULTANE) 15 ML INHAL SOLN ONE ×2 (12:43→12:48)
[2021-08-06] MEDS ORDERED: proPOfol 200 MG/20 ML (DIPRIVAN) VIAL IV ONE (12:43)
[2021-08-06] MEDS ORDERED: ROCURONIUM 10 MG/ML 5 ML SYRINGE IV ONE (12:43)
[2021-08-06] MEDS ORDERED: LIDOCAINE PF 2% 5 ML (XYLOCAINE) VIAL ONE (12:43)
[2021-08-06] MEDS ORDERED: GLYCOPYRROLATE 0.2 MG/ML (ROBINUL) 2 ML VIAL ONE (12:43)
[2021-08-06] MEDS ORDERED: ONDANSETRON 4 MG/2 ML (SDV) Z0FRAN ONE (12:43)
--- NOTE | 2021-08-06 13:44 | Anesthesia-General Post-Op ---
General Patient Condition Mental Status/LOC: Same as Preop Cardiovascular: Satisfactory Nausea/Vomiting: Absent Respiratory: Satisfactory Pain: Controlled Complications: Absent Post Op Complications Complications None Follow Up Care/Instructions Patient Instructions None needed. Anesthesia/Patient Condition Patient Condition Patient is doing well, no complaints, stable vital signs, no apparent adverse anesthesia problems. No complications reported per nursing. JW RUIZ CRNA Aug 06, 2021 13:44
--- NOTE | 2021-08-06 19:14 | OPERATIVE REPORT ---
DATE OF SERVICE: 08/06/2021 ATTENDING PRIMARY CARE PHYSICIAN: Avery Lock MD PREOPERATIVE DIAGNOSIS: Symptomatic biliary dyskinesia. POSTOPERATIVE DIAGNOSIS: Symptomatic biliary dyskinesia with early chronic calculous cholecystitis. PROCEDURE: Laparoscopic cholecystectomy. SURGEON: Jaki Whitlock MD. YOUTH MINISTRY DIRECTOR: Gilmer Fay APRN. ANESTHESIA: General endotracheal. ESTIMATED BLOOD LOSS: Minimal. FINDINGS: Distended gallbladder, small gallstone. DISPOSITION: The patient tolerated the procedure well. INDICATIONS: The patient is a 46-year-old female, known to us. She has had a history of gastroesophageal reflux disease and underwent an upper endoscopy in the past. She states that in May of this year, she has felt some pain in the right upper abdominal quadrant, which would occur after eating greasy or spicy foods. She underwent a gallbladder ultrasound, which was negative and then a HIDA scan was performed, which did show bile acid reflux as well as a hyperfunctioning gallbladder after the administration of Kinevac analogue consistent with a biliary dyskinesia. DESCRIPTION OF PROCEDURE: The patient was brought to the operating room, laid supine on the table. After adequate IV pain and sedative medications and general endotracheal intubation, the abdomen was prepped and draped in standard surgical fashion. A 0.5% Marcaine with epinephrine was then used to anesthetize overlying skin in the left upper abdominal quadrant and transverse skin incision made using a 15 blade. An #0 silk suture was applied to the medial aspect incision for retraction and a Veress needle inserted with a low opening pressure of 0 mmHg. The abdomen was then insufflated to 15 mmHg pressure. The Veress needle removed and a 5 mm XL trocar placed followed by a 5 mm 45-degree angle laparoscope visualizing the peritoneal cavity. A 4-quadrant abdominal exploration was performed. There was a slightly distended gallbladder, no gallbladder wall thickening. Under direct visualization, a supraumbilical 10 mm port was placed after the skin and peritoneal lining were anesthetized using 0.5% Marcaine with epinephrine and a transverse skin incision made using 15 blade. In a similar manner, a right upper abdominal quadrant 5 mm port was placed. The patient was then placed in reverse Trendelenburg position as well as plane right side up, left side down. The fundus of the gallbladder was then retracted anteriorly and superiorly. The hepatoduodenal ligament was then dissected open using blunt dissection as well as electrocautery on hook instrument as well as a [place] dissector. The entire critical view of safety was identified including the triangle of Calot as well as the cystic duct and artery as only two structures going to gallbladder as well as the cystic plate behind the proximal gallbladder. A timeout was then taken and the cystic duct and artery were then clipped proximally and distally and cut with EndoShears. The gallbladder was then dissected off the liver bed using electrocautery with visualization of good hemostasis as well as no leaking ducts of Luschka. The gallbladder was removed through the 10 mm port site using an EndoCatch bag. The 10 mm port site fascia and peritoneum were then closed under direct visualization using a Harmeet-Jaime device and #0 Vicryl suture. The abdomen was then desufflated and remaining ports removed. All skin incisions were closed using 4-0 Monocryl running subcuticular sutures. Wounds were then cleaned and covered with Dermabond. The patient tolerated the procedure well. We will start IV normal pain medication as well as a clear liquid diet. When she is tolerating clears, there is good pain control with oral pain medications, ambulating well, we will discharge her home where she will be instructed to do no heavy lifting or exertion for the next two weeks. Job ID: [id number] DocumentID: [id number] Dictated Date: 08/06/2021 12:51:33 Billboard Poster Date: 08/06/2021 19:13:35 Dictated By: JAKI WHITLOCK MD
== END 2021-08-06 15:10 ==
LOC: SDC 09:46
PROVIDERS: ATTEND Surgery
DX: K80.10 Calculus of gallbladder with chronic cholecystitis without obstruction (principal); K82.8 Other specified diseases of gallbladder; I10 Essential (primary) hypertension; K21.9 Gastro-esophageal reflux disease without esophagitis; E66.9 Obesity, unspecified; E78.00 Pure hypercholesterolemia, unspecified; F17.210 Nicotine dependence, cigarettes, uncomplicated; Z79.899 Other long term (current) drug therapy; Z83.3 Family history of diabetes mellitus; Z80.1 Family history of malignant neoplasm of trachea, bronchus and lung; Z80.3 Family history of malignant neoplasm of breast
CPT/HCPCS: 87081

== ENCOUNTER → 2022-07-05 | Outpatient (CLI) | payer MEDICAID ==
[~2022-07-05] MED LIST changes: +ACET-11 PO; -ACET1TAB43 PO; +OMEP20TA56 PO; -OMEP20TA7 PO; +OXYC1TAB16 PO
--- NOTE | 2022-07-05 11:12 | Diagnostic Imaging Report ---
INDICATION: Routine screening. Comparison is made with prior mammogram from 07/03/2021 and 06/12/2020. 2-D and 3-D bilateral screening mammography was performed with CAD. Both breasts are heterogeneously dense, limiting the sensitivity of mammography. The parenchymal pattern is stable. No dominant mass or malignant-appearing microcalcifications are seen. Axillae are unremarkable. IMPRESSION: No mammographic features suspicious for malignancy are identified. ACR BI-RADS Category 2: Benign findings. Result letter will be mailed to the patient. Note: At least 10% of breast cancer is not imaged by mammography. BI-RADS Category 2 Dictated by: Dictated on workstation # [id number]
== END ==
LOC: RAD 08:36
PROVIDERS: ATTEND Family Medicine
DX: Z12.31 Encounter for screening mammogram for malignant neoplasm of breast (principal)
CPT/HCPCS: 77063; 77067

== ENCOUNTER → 2022-10-15 | Outpatient (CLI) | payer MEDICAID ==
--- NOTE | 2022-10-15 13:59 | Diagnostic Imaging Report ---
Indication: Left breast lump. Comparison is made with prior mammograms 07/05/2022, 07/03/2021. Unilateral left 2-D and 3-D diagnostic mammography was performed with CAD. Left breast is heterogeneously dense, limiting the sensitivity of mammography. Circumscribed nodule in the upper left breast mid depth is stable. No discrete mass at the area of palpable abnormality in the upper and outer left breast is identified. No malignant-appearing microcalcifications are identified. Left axilla is unremarkable. IMPRESSION: BI-RADS 0 No mammographic features suspicious for malignancy are identified. Even so, directed sonographic interrogation of the area of palpable lump in the left breast is recommended and will be performed today. ACR BI-RADS Category 0: Incomplete. (Needs additional imaging evaluation). Result letter will be mailed to the patient. Note: At least 10% of breast cancer is not imaged by mammography. Dictated by: Dictated on workstation # [id number]
--- NOTE | 2022-10-15 16:49 | Diagnostic Imaging Report ---
Indication: Left breast lump. Correlation is made with diagnostic mammogram earlier same day. Sonographic interrogation of the area of lump in the upper outer left breast was performed. There is an ovoid, circumscribed hyperechoic nodule just below the skin surface at the 2:00 location of the left breast, 5-6 cm from the nipple. This measures 9 mm x 3 mm x 6 mm and corresponds to the patient's palpable abnormality. Imaging characteristics are most suggestive of a lipoma. No other masses are seen. IMPRESSION: BI-RADS Category 2 Findings most suggestive of a small lipoma. 2:00 location left breast, corresponding to the palpable abnormality. The patient may return to routine annual screening mammography. ACR BI-RADS Category 2: Benign findings. Result letter will be mailed to the patient. Note: At least 10% of breast cancer is not imaged by mammography. Dictated by: Dictated on workstation # [id number]
== END ==
LOC: RAD 13:28
PROVIDERS: ATTEND Family Medicine
DX: N63.21 Unspecified lump in the left breast, upper outer quadrant (principal)
CPT/HCPCS: 76642; 77065; G0279

== ENCOUNTER 2022-10-26 05:30 | Outpatient (CLI) | payer MEDICAID ==
[~2022-10-26] VITALS: Ht 160 cm; Wt 90.0 kg
[2022-10-26] MEDS ORDERED: NAPR-1070 PO (08:57)
== END 2022-10-26 11:48 | disposition home or self-care (01) ==
LOC: PREOP 05:30
PROVIDERS: ATTEND Surgery
DX: Z01.818 Encounter for other preprocedural examination (principal)

== ENCOUNTER 2022-10-28 12:27 | Day surgery (SDC) | payer MEDICAID ==
[~2022-10-28] VITALS: Ht 160 cm; Wt 90.0 kg
[2022-10-28] VITALS (7 sets, daily range): BP systolic 102–121; BP diastolic 63–82
[~2022-10-28 12:27] MED LIST changes: +NAPR-1070 PO
[2022-10-28] MEDS ORDERED: LIDOCAINE/EPI 1%-1:100,000 (XYLOCAINE) 20ML ONE (12:54)
[2022-10-28] MEDS ORDERED: LACTATED RINGERS 1,000 ML IV PRN (13:15)
[2022-10-28] MEDS ORDERED: CLINDAMYCIN 600 MG/50 ML IVPB 50 ML IV ONE (13:15)
[2022-10-28] MEDS ORDERED: fentaNYL INJ 100 MCG/2 ML AMP ONE (13:48)
[2022-10-28] MEDS ORDERED: PROPOFOL INJECTION 50 ML IV ONE (13:48)
[2022-10-28] MEDS ORDERED: ONDANSETRON 4 MG/2 ML (SDV) Z0FRAN ONE (13:48)
[2022-10-28] MEDS ORDERED: MIDAZOLAM 2 MG/2 ML (VERSED) VIAL ONE (13:49)
--- NOTE | 2022-10-28 14:38 | Progress Note-Pre Operative ---
Pre-Operative Progress Note Date of Available H&P: Oct 28, 2022 Date H&P Reviewed: Oct 28, 2022 Time H&P Reviewed: 14:00 History & Physical: No changes noted Pre-Operative Diagnosis: left breast mass JAKI WHITLOCK MD Oct 28, 2022 14:38
[2022-10-28] MEDS ORDERED: HYDR-3817 PO (14:39)
--- NOTE | 2022-10-28 14:39 | Discharge Inst-Surgical ---
D/C Lap Instructions-CHINYERE New, Converted, or Re-Newed RX: RX on Chart Follow Up Appt in 2 weeks Activity as tolerated No driving for 24 hours No driving while on pain medications Incentive Spirometry use every 2 hours while awake Regular Diet Symptoms to Report: Fever over 101 degree F, Nausea/Vomiting Infection Signs and Symptoms to report: Increased redness, Foul odor of wound, Increased drainage Bathing instructions: May shower Operative Area Clean/Dry; Keep incision clean/dry If any problems/questions: Contact your physician or go to Emergency Room JAKI WHITLOCK MD Oct 28, 2022 14:39
[2022-10-28] MEDS ORDERED: morphine INJ 10 MG/ML 1ML (SYR OR VIAL) IVP PRN ×2 (14:45)
[2022-10-28] MEDS ORDERED: ONDANSETRON 4 MG/2 ML (SDV) Z0FRAN IVP PRN ×2 (14:45→15:45)
[2022-10-28] MEDS ORDERED: ACETAMINOPHEN 325 MG TABLET PO PRN (14:45)
[2022-10-28] MEDS ORDERED: oxyCODONE/APAP 5/325MG (PERCOCET 5) TABLET PO PRN (14:45)
--- NOTE | 2022-10-28 15:28 | Progress Note-Post Operative ---
Post-Operative Progess Note Surgeon (s)/Chipping Machine Operator (s) Surgeon JAKI WHITLOCK MD Chipping Machine Operator: none Pre-Operative Diagnosis left breast mass Post-Operative Diagnosis same Procedure & Operative Findings Date of Procedure 10/28/22 Procedure Performed/Findings excisional bx left breast(1.5cm) Anesthesia Type mac with local Estimated Blood Loss Estimated blood loss (mL): minimal Specimens/Packing Specimens Removed left breast lesion JAKI WHITLOCK MD Oct 28, 2022 15:28
[2022-10-28] MEDS ORDERED: HYDROmorphone 2 MG/ML VIAL (DILAUDID) IV ONE (15:45)
--- NOTE | 2022-10-28 16:50 | Anesthesia-General Post-Op ---
MAC Patient Condition Mental Status/LOC: Same as Preop Cardiovascular: Satisfactory Nausea/Vomiting: Absent Respiratory: Satisfactory Pain: Controlled Complications: Absent Post Op Complications Complications None Follow Up Care/Instructions Patient Instructions None needed. Anesthesiology Discharge Order Discharge Order Patient is doing well, no complaints, stable vital signs, no apparent adverse anesthesia problems. No complications reported per nursing. JOYCE LOPEZ CRNA Oct 28, 2022 16:50
--- NOTE | 2022-10-28 17:44 | OPERATIVE REPORT ---
DATE OF SERVICE: 10/28/2022 ATTENDING PRIMARY CARE PHYSICIAN: Avery Lock MD PREOPERATIVE DIAGNOSIS: Left breast lesion. POSTOPERATIVE DIAGNOSES: Left breast lesion with excised diameter 1.5 cm in size. PROCEDURE: Excisional left breast biopsy, 1.5 cm in size. SURGEON: Jaki Whitlock MD ANESTHESIA: Monitored anesthesia care with local. ESTIMATED BLOOD LOSS: Minimal. FINDINGS: Left breast lesion with excised diameter 1.5 cm in size. DISPOSITION: The patient tolerated the procedure well. INDICATIONS: The patient is a 47-year-old female who has been getting annual mammograms since age 39. No lesions were detected on her mammogram in 2021. She states that she felt a nodule on the left lateral breast at approximately the 2 o'clock position, approximately 6 cm from the nipple areolar complex. She then underwent an ultrasound, which did show a lesion approximately 1 cm in size. She is otherwise doing well, does not report any skin dimpling, asymmetries or any abnormal nipple discharge. She has never had any previous breast biopsies before in the past. She does have a remote family history of breast cancer with her maternal grandmother having the disease. DESCRIPTION OF PROCEDURE: The patient was brought to the operating room, laid supine on the table. After adequate IV pain and sedative medications and monitored anesthesia care, the left breast was just prepped and draped in standard surgical fashion. Lidocaine 1% with epinephrine was then used to anesthetize the overlying skin in the left lateral breast and a curvilinear skin incision was made using a #15 blade. Subcutaneous tissue was then dissected using electrocautery. The breast tissue was also dissected out using electrocautery. The palpable nodule was then identified and we proceeded to excise the lesion as well as normal appearing breast tissue using electrocautery and retraction of the lesion using an Allis clamp. The entire lesion was then excised and sent to pathology with visualization of good hemostasis. The skin edges were then reapproximated using a 4-0 Monocryl running subcuticular suture. Wound was then cleaned and covered with Dermabond. The patient tolerated the procedure well. She may do all of her normal activities; however, no heavy lifting or exertion for 2 weeks. We will also have her follow up in the office in approximately 2 weeks to discuss the pathology results. Job ID: [id number] DocumentID: [id number] Dictated Date: 10/28/2022 15:32:57 Pediatric Sports Medicine Specialist Date: 10/28/2022 17:24:00 Dictated By: JAKI WHITLOCK MD
== END 2022-10-28 16:40 | disposition home or self-care (01) ==
LOC: SDC 12:27
PROVIDERS: ATTEND Surgery
DX: N63.21 Unspecified lump in the left breast, upper outer quadrant (principal); K21.9 Gastro-esophageal reflux disease without esophagitis; F17.290 Nicotine dependence, other tobacco product, uncomplicated; E66.9 Obesity, unspecified; Z68.35 Body mass index [BMI] 35.0-35.9, adult
CPT/HCPCS: 87081

== ENCOUNTER → 2023-05-19 | Outpatient (CLI) | payer MEDICAID ==
[~2023-05-19] MED LIST changes: +HYDR-3817 PO; +TOPI-241 PO; -TOPI50TA13 PO
== END ==
LOC: CANPRECLI → CARD 08:07
PROVIDERS: ATTEND Internal Medicine Cardiovascular Disease
DX: I10 Essential (primary) hypertension (principal)
CPT/HCPCS: 93306